=== PATIENT | female | born 1950 | race Caucasian/White ===

== ENCOUNTER 2016-07-15 14:13 | Emergency (ER) | payer OTHER ==
[~2016-07-15] VITALS: Ht 152.4 cm; Wt 57.6 kg
[2016-07-15] MEDS ORDERED: NITROGLYCERIN 0.4 MG/TAB BOTTLE SL ONE (15:30)
[2016-07-15 15:45] VITALS: BP 144/72
== END 2016-07-15 15:48 | disposition home or self-care (01) ==
LOC: ER 14:15
DX: T17.208A Unspecified foreign body in pharynx causing other injury, initial encounter (principal); X58.XXXA Exposure to other specified factors, initial encounter; Y93.9 Activity, unspecified; Y92.89 Other specified places as the place of occurrence of the external cause; Y99.8 Other external cause status
CPT/HCPCS: 99282; A4606; Z7610

== ENCOUNTER 2024-01-29 09:44 | Emergency (ER) | payer OTHER ==
[~2024-01-29] VITALS: Ht 162.6 cm; Wt 47.2 kg
[2024-01-29] MEDS: IV NS 0.9% 1,000 ML BAG IV ONE (10:26)
[2024-01-29 10:29] LABS: BASOPHILS % (AUTO) 0.5 % (0.0-2.0); EOSINOPHILS % (AUTO) 0.5 % (0.0-6.0); HEMATOCRIT 41 % (33-45); HEMOGLOBIN 13.3 g/dL (11.5-14.8); LYMPHOCYTES # (AUTO) 0.9 K/uL (0.8-4.8); LYMPHOCYTES % (AUTO) 15.7 % (20.0-44.0); MEAN CORPUSCULAR HEMOGLOBIN 33 PG (26.0-33.0); MEAN CORPUSCULAR HGB CONC 33 g/dl (31.0-36.0); MEAN CORPUSCULAR VOLUME 101 fL (82-100); MONOCYTES # (AUTO) 0.4 K/uL (0.1-1.30); NEUTROPHILS # (AUTO) 4.1 K/uL (1.8-8.9); NEUTROPHILS % (AUTO) 75.3 % (43.0-81.0); PLATELET COUNT (AUTO) 284 K/uL (150-450); RED BLOOD CELL COUNT(AUTO) 4.05 MIL/uL (4.0-5.2); RED CELL DISTRIBUTION WIDTH 14.5 % (11.5-15.0); WHITE BLOOD COUNT (AUTO) 5.4 K/uL (4.3-11.0)
[2024-01-29 10:51] LABS: ALANINE AMINOTRANSFERASE 22 U/L (12-78); ALBUMIN 3.3 g/dL (3.4-5.0); ALKALINE PHOSPHATASE 75 U/L (46-116); ASPARTATE AMINOTRANSFERASE 40 U/L (15-37); BILIRUBIN,DIRECT 0.3 mg/dL (0.0-0.2); BILIRUBIN,TOTAL 1.2 mg/dL (0.2-1.0); CALCIUM, SERUM 8.9 mg/dL (8.5-10.1); CARBON DIOXIDE 33 mmol/L (21-32); CHLORIDE 101 mmol/L (98-107); CREATININE 1.3 mg/dL (0.6-1.3); GLUCOSE 109 mg/dL (74-106); SODIUM SERUM 144 mmol/L (136-145); TOTAL PROTEIN, SERUM 7.1 g/dL (6.4-8.2); UREA NITROGEN, BLOOD 8 mg/dL (7-18)
[2024-01-29 10:54] LABS: POTASSIUM 2.3 mmol/L (3.5-5.1)
[2024-01-29] MEDS ORDERED: POTASSIUM CHLORIDE 20 MEQ TAB.PRT.SR PO ONE (11:33)
[2024-01-29] MEDS: POTASSIUM CHLORIDE 20 MEQ TAB.PRT.SR PO ONE (11:40)
[2024-01-29] MEDS: POTASSIUM CL. PREMIX PERIPHER. 50 ML IV SCH (11:49)
[2024-01-29] MEDS: Magnesium 1GM/D5W 100ML PREMIX 100 ML IV SCH (12:30)
[2024-01-29] MEDS ORDERED: ASPIRIN 325 MG TABLET ONE (15:08)
[2024-01-29] MEDS: ASPIRIN 81 MG TAB.CHEW PO ONE (15:11)
[2024-01-29] MEDS ORDERED: ASPIRIN 81 MG TAB.CHEW ONE (15:11)
[2024-01-29] MEDS ORDERED: Magnesium 1GM/D5W 100ML PREMIX 100 ML IV ONE (15:29)
[2024-01-29] MEDS: Magnesium 1GM/D5W 100ML PREMIX 100 ML IV STA (15:32)
[2024-01-29 16:32] VITALS: BP 123/83; TEMP 98.2; O2SAT 97
== END 2024-01-29 17:17 | disposition short-term general hospital (02) ==
LOC: ER 09:49
DX: R53.1 Weakness (principal); E87.6 Hypokalemia; R51.9 Headache, unspecified; E83.42 Hypomagnesemia; R79.89 Other specified abnormal findings of blood chemistry; Z20.822 Contact with and (suspected) exposure to COVID-19; Z60.2 Problems related to living alone
CPT/HCPCS: 99291; 96365; 96366; 70450; 96361; 87426; 96368; 93005; 71045; 85025; 80048; 80076; 83735; 36415; 84484 ×2; J7030; J7040; J3480 ×2; J3475 ×2; A4223 ×2

== ENCOUNTER 2024-04-06 12:29 | Emergency (ER) | payer OTHER ==
[~2024-04-06] VITALS: Ht 154.9 cm; Wt 48.5 kg
[2024-04-06 14:20] LABS: BASOPHILS % (AUTO) 0.4 % (0.0-2.0); HEMATOCRIT 38 % (33-45); HEMOGLOBIN 12.2 g/dL (11.5-14.8); LYMPHOCYTES # (AUTO) 0.6 K/uL (0.8-4.8); LYMPHOCYTES % (AUTO) 7.9 % (20.0-44.0); MEAN CORPUSCULAR HEMOGLOBIN 33 PG (26.0-33.0); MEAN CORPUSCULAR HGB CONC 33 g/dl (31.0-36.0); MEAN CORPUSCULAR VOLUME 100 fL (82-100); MONOCYTES # (AUTO) 0.4 K/uL (0.1-1.30); MONOCYTES % (AUTO) 4.7 % (2.0-12.0); NEUTROPHILS # (AUTO) 6.5 K/uL (1.8-8.9); PLATELET COUNT (AUTO) 362 K/uL (150-450); RED BLOOD CELL COUNT(AUTO) 3.75 MIL/uL (4.0-5.2); RED CELL DISTRIBUTION WIDTH 14.8 % (11.5-15.0); WHITE BLOOD COUNT (AUTO) 7.5 K/uL (4.3-11.0)
[2024-04-06 14:34] LABS: CARBON DIOXIDE 15 mmol/L (21-32); CHLORIDE 100 mmol/L (98-107); CREATININE 1.6 mg/dL (0.6-1.3); POTASSIUM 4.1 mmol/L (3.5-5.1); SODIUM SERUM 139 mmol/L (136-145); UREA NITROGEN, BLOOD 35 mg/dL (7-18)
[2024-04-06 14:43] LABS: GLUCOSE 49 mg/dL (74-106)
[2024-04-06] MEDS ORDERED: DEXTROSE 50%-WATER 50 ML DISP.SYRIN ONE (15:12)
[2024-04-06] MEDS: DEXTROSE 50%-WATER 50 ML DISP.SYRIN IVP ONE (15:20)
[2024-04-06] MEDS: IV NS 0.9% 1,000 ML BAG IV ONE (15:20)
[2024-04-07 00:51] VITALS: BP 110/77; TEMP 98; O2SAT 98
== END 2024-04-07 00:52 | disposition short-term general hospital (02) ==
LOC: ER 12:36
DX: F10.129 Alcohol abuse with intoxication, unspecified (principal); G44.309 Post-traumatic headache, unspecified, not intractable; E16.2 Hypoglycemia, unspecified; M54.2 Cervicalgia; R05.3 Chronic cough; Z60.2 Problems related to living alone; V43.52XA Car driver injured in collision with other type car in traffic accident, initial encounter; Y93.89 Activity, other specified; Y92.488 Other paved roadways as the place of occurrence of the external cause; Y99.8 Other external cause status; Y90.9 Presence of alcohol in blood, level not specified
CPT/HCPCS: 99285; 72125; 96374; 71045; 96361; 70450; 70486; 85025; 80048; 36415; 82962 ×4; J7030